=== PATIENT | male | born 1995 | race Caucasian/White ===

== ENCOUNTER 2023-07-03 22:18 | Emergency (ER) | payer OTHER, SELFPAY ==
[2023-07-03 22:20] VITALS: BP 120/84
[2023-07-03 22:45] VITALS: BP 145/85
[2023-07-03 22:49] LABS: Hematocrit 43.4 % (39.0-52.0); Hemoglobin 15.8 g/dL (13.0-18.0); Mean Corp Hgb Conc. 36.4 g/dL (33.0-37.0); Mean Corpuscular Hgb 30.4 pg (27.0-31.0); Mean Corpuscular Volume 83.6 fL (80.0-94.0); Mean Platelet Volume 9.6 fL (7.4-10.4); Platelet Count 261 10^3/uL (130-400); Red Blood Cell Count 5.19 10^6/uL (4.70-6.10); Red Cell Dist. Width 12.1 % (11.5-14.5)
--- NOTE | 2023-07-03 22:55 | ED.GENMED ---
History of Present Illness
<REILLY Zamudio - Last Filed: 07/04/23 02:07>
General
Chief Complaint: Heart Rate Problem
Source: patient
Exam Limitations: none
Time Seen by Provider: 07/03/23 22:47
Travel History
Have you had any contact with someone who has COVID-19?: No
Do you have any symptoms of coronavirus? Fever > 100 degrees, chills, cough, shortness of breath, sore throat, loss of taste or smell, muscle aches, or headache?: No
History of Present Illness
History of Present Illness:
This is a 28 year old male that comes in with c/o increased heart rate. States that for the pat 4-5 hour his heart rate has been between 110 to 130. States that he has no chest pain. States that he has a headache and vomited X 3. States that he was
just working on [employer] stuff. Denies any fever, chills, chest pain, SOB, abd pain, nausea, diarrhea, dizziness, urinary burning.
Past History
<REILLY Zamudio - Last Filed: 07/04/23 02:07>
Past History
ED Past Medical History: GERD
ED Past Surgical History: Other (Myringotomy tubes)
Social History
Tobacco: Non-smoker
Alcohol: Occasional
Personal: Single
Living: with family
Employment: Student
Review of Systems
<REILLY Zamudio - Last Filed: 07/04/23 02:07>
Review of Systems
All Other Systems: ROS reviewed and negative except as documented in HPI and ROS
Constitutional: Reports no symptoms; Denies fever or chills
EENT: Reports no symptoms
Respiratory: Denies cough or trouble breathing
Cardiac: Denies chest pain
ABD/GI: Reports nausea and vomiting; Denies abdominal pain or diarrhea
: Reports no symptoms
Musculoskeletal: Reports no symptoms
Skin: Reports no symptoms
Neurological: Reports headache (across his forehead); Denies dizzy
Psychiatric: Reports no symptoms
Phy Exam
<REILLY Zamudio - Last Filed: 07/04/23 02:07>
General Physical Exam
General Presentation: well appearing and no apparent distress
General age: appears stated age
General Skin: warm and dry
General Habitus: normal
General Mental: alert
ENT Exam
ENT Exam: TM's normal, pharynx normal and neck supple
Eye Exam
Eye Exam: EOMI
Cardiovascular Exam
Cardiovascular Exam: no edema, normal peripheral pulses and tachycardia
Pulmonary Exam
Pulmonary Exam: lungs clear, no respiratory distress, no rales, chest non tender, no crackles, no rhonchi, no wheezing and no cough
Gastrointestinal Exam
Gastrointestinal Exam: normal bowel sounds, non tender, soft, no organomegaly, no pulsatile mass and non distended
Musculoskeletal Exam
Musculoskeletal Exam: full ROM and no edema
Skin Exam
Skin Exam: normal color, warm/dry, no rash and no petechia
Psychiatric Exam
Psychiatric Exam: normal mood/affect
Course
<REILLY Zamudio - Last Filed: 07/04/23 02:07>
Orders/Labs/Results
Orders:
Orders
07/03/23 22:24
Electrocardiogram (*1) Urgent
Reason for Study: Tachycardia
EKG- Treatment ONCE
07/03/23 22:43
Complete Blood Count/No Diff Urgent
Comprehensive Metabolic Panel Urgent
TSH Urgent
07/03/23 22:53
0.9% Sodium Chloride 1000 ml [Nss] 1,000 ml IV BOLUS
Ibuprofen [Motrin] 600 mg PO NOW STA
07/03/23 22:56
Ondansetron Injectable [Zofran] 4 mg IV NOW STA
07/03/23 23:05
COVID-19 Antigen Urgent
Source: Nasal Swab
Complete Blood Count/With Diff Urgent
Influenza A+B Rapid Molecular Urgent
SCOTT Source: Nasal Swab
Specimen Description:
07/03/23 23:35
Urinalysis Reflex To Culture Urgent
Date Specimen was Collected: 07/04/23
Time Specimen was Collected: 00:06
CR Chest - 2 Views Urgent
Comment:
Reason For Exam: fEVER
07/04/23 00:10
0.9% Sodium Chloride 1000 ml [Nss] 1,000 ml IV BOLUS
07/04/23 01:13
Acetaminophen [Tylenol] 1,000 mg PO NOW STA
Abnormal Lab Results
07/03/23 07/03/23
22:43 23:05
WBC 19.0 H 10^3/uL 18.8 H 10^3/uL
(4.8-10.8) (4.8-10.8)
Abs Immat Gran (auto) 0.1 H 10^3/uL
(0-0.05)
Absolute Neuts (auto) 16.5 H 10^3/uL
(1.4-6.5)
Absolute Monos (auto) 0.9 H 10^3/uL
(0.1-0.6)
Neutrophils % 87.6 H %
(42.2-75.2)
Lymphocytes % 6.6 L %
(20.5-51.1)
Glucose 115 H mg/dl
(70-99)
07/03/23 23:05
07/03/23 22:43
LEUKOCYTOSIS, GLUCOSE NONFASTING. TSH 0.83, COVID and Influenza Negative. Urine negative for infection.
Vital Signs
Initial and Last Documented VS:
Initial Vital Signs
Temp Pulse Resp BP Pulse Ox
99 F 146 22 120/84 98
07/03/23 22:20 07/03/23 22:20 07/03/23 22:20 07/03/23 22:20 07/03/23 22:20
Last Documented Vital Signs
Temp Pulse Resp BP Pulse Ox
102.3 F H 119 22 119/64 100
07/04/23 01:59 07/04/23 01:02 07/04/23 01:02 07/04/23 01:02 07/04/23 01:02
<Paul Rossi, DO - Last Filed: 07/04/23 01:40>
Orders/Labs/Results
Orders:
Orders
07/03/23 22:24
Electrocardiogram (*1) Urgent
Reason for Study: Tachycardia
EKG- Treatment ONCE
07/03/23 22:43
Complete Blood Count/No Diff Urgent
Comprehensive Metabolic Panel Urgent
TSH Urgent
07/03/23 22:53
0.9% Sodium Chloride 1000 ml [Nss] 1,000 ml IV BOLUS
Ibuprofen [Motrin] 600 mg PO NOW STA
07/03/23 22:56
Ondansetron Injectable [Zofran] 4 mg IV NOW STA
07/03/23 23:05
COVID-19 Antigen Urgent
Source: Nasal Swab
Complete Blood Count/With Diff Urgent
Influenza A+B Rapid Molecular Urgent
SCOTT Source: Nasal Swab
Specimen Description:
07/03/23 23:35
Urinalysis Reflex To Culture Urgent
Date Specimen was Collected: 07/04/23
Time Specimen was Collected: 00:06
CR Chest - 2 Views Urgent
Comment:
Reason For Exam: fEVER
07/04/23 00:10
0.9% Sodium Chloride 1000 ml [Nss] 1,000 ml IV BOLUS
07/04/23 01:13
Acetaminophen [Tylenol] 1,000 mg PO NOW STA
Abnormal Lab Results
07/03/23 07/03/23
22:43 23:05
WBC 19.0 H 10^3/uL 18.8 H 10^3/uL
(4.8-10.8) (4.8-10.8)
Abs Immat Gran (auto) 0.1 H 10^3/uL
(0-0.05)
Absolute Neuts (auto) 16.5 H 10^3/uL
(1.4-6.5)
Absolute Monos (auto) 0.9 H 10^3/uL
(0.1-0.6)
Neutrophils % 87.6 H %
(42.2-75.2)
Lymphocytes % 6.6 L %
(20.5-51.1)
Glucose 115 H mg/dl
(70-99)
07/03/23 23:05
07/03/23 22:43
Vital Signs
Initial and Last Documented VS:
Initial Vital Signs
Temp Pulse Resp BP Pulse Ox
99 F 146 22 120/84 98
07/03/23 22:20 07/03/23 22:20 07/03/23 22:20 07/03/23 22:20 07/03/23 22:20
Last Documented Vital Signs
Temp Pulse Resp BP Pulse Ox
102.3 F H 119 22 119/64 100
07/04/23 01:59 07/04/23 01:02 07/04/23 01:02 07/04/23 01:02 07/04/23 01:02
<REILLY Zamudio - Last Filed: 07/04/23 02:07>
MDM/Problems Addressed
Differential Diagnosis Includes:
Fever, COVID, Influenza
MDM/Problems Addressed:
This is a 28 year old male that comes in with c/o increased heart rate for the past 4-5 hours. 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
Will check labs, Medicate for fever as found to have a fever of 101.9 and give IV fluids. Will test for COVID and Influenza.
Back into see patient. Patient continues with a fever of 102.3. Patient has had Tylenol and Ibuprofen for his fever. Patient was seen by Dr. Rossi. Patient states that he feels fine. Explained that this is most likely a viral illness. Patient to
increase his water intake to 8-8oz glasses daily. Patient to continue with Tylenol and Ibuprofen for fever. Return with any concerns.
Chronic conditions affecting care:
NA
Acute Exacerbation and/or Progression of Chronic Illness:
NA
<REILLY Zamudio - Last Filed: 07/04/23 02:07>
*Radiology
Radiology exam reviewed: radiology read reviewed (Chest- negative for active disease. )
*Pulse Oximetry
Patient hypoxic: no
*EKG
Interpreted by ED Provider?: Yes
Heart Rate: 129
Rate: tachycardiac
Rhythm: sinus
[place]: normal axis
Interval: normal interval
QRS Pattern: normal QRS
Ischemia: no ischemia (Checked by Dr. Rossi)
*[employer] Interpretation
Rate: tachycardiac
Heart Rate: 130
Rhythm: sinus tachycardia
*Critical Care Note
Total Time (30-74mins, 75-104mins- exclusive of procedures): Not Applicable
ED Attending Note
<REILLY Zamudio - Last Filed: 07/04/23 02:07>
-
Portions of this chart may have been created with voice recognition software.� Occasional wrong word or��sound alike� substitutions may have occurred due to the inherent limitations of voice recognition software.
<Paul Rossi DO - Last Filed: 07/04/23 01:40>
ED Attending Note
Patient seen and examined by attending physician: Yes
I performed the substantive portion of visit, reviewed & personally made and approve the management plan that is documented in note by myself or RAYMOND.: Yes
ED Attending Note:
28-year-old male who presents for evaluation of fast heart rate. He states his heart rate monitor on his watch mention that his heart rate was fast. Patient states he did have vomiting earlier. He had a little bit of a headache and antibody of
like 99. He states he has been under a lot of stress due to planning a wedding. Patient denies congestion. No abdominal pain. No dysuria. No rash. No neck pain. No neck stiffness. Exam: Temperature 101.5 on my exam. Is a bit tachycardic.
Abdomen soft and nontender, no CVA tenderness. Assessment and plan: Do not suspect meningitis. Is not an IV drug abuser. No significant risks and question whether this could be viral. Perhaps in light of the vomiting he could have norovirus.
Continue IV fluids and antipyretics
Discharge Plan
Departure
Patient Disposition: Home (Routine Discharge)
Date of Disposition: 07/04/23
Time of Disposition: 02:03
Patient with high blood pressure during this ER visit?: No
Condition: Good
Covid-19: Negative COVID-19
Discharge Problem:
Acute viral syndrome, Fever
Instructions: Fever, Adult (DC), Viral Syndrome (DC)
Referrals:
UNKNOWN - PT DOES,NOT KNOW [Family Provider] -
Activity Restrictions/Additional Instructions:
As discussed, your blood work shows that your WBC are elevated. You are negative for COVID and Influenza. Your chest x-ray is normal and your urine is negative for infection. This is most likely a viral syndrome. Please increase your water intake to
8-8oz glasses daily. Continue with Tylenol 1000mg every 6 hours for the fever and Ibuprofen 600mg every 6 hours with food. Follow up with the family doctor for recheck. IF YOU HAVEV ANY OTHER CONCERNS PLEASE RETURN TO THE EMERGENCY ROOM.
Interventions
Interventions:
*Risk Screen - Suicide Last Done: 07/03/23 22:20
*Neglect/Abuse Screening Last Done: 07/03/23 22:20
ED- Cardiac Assessment Last Done: 07/03/23 22:46
ED- Pulmonary Assessment Last Done: 07/03/23 22:46
[2023-07-03] MEDS: NSS 1000 IV (23:03)
[2023-07-03 23:04] LABS: ALT (SGPT) 31 U/L (0-50); AST (SGOT) 31 U/L (17-59); Albumin 4.9 g/dl (3.5-5.0); Alkaline Phosphatase 76 U/L (38-126); Blood Urea Nitrogen 13 mg/dl (9-20); Calcium 9.8 mg/dl (8.4-10.2); Carbon Dioxide 22 mmol/L (22-30); Chloride 105 mmol/L (98-107); Glucose 115 mg/dl (70-99); Potassium 3.6 mmol/L (3.5-5.1); Sodium 136 mmol/L (135-145); Total Bilirubin 0.8 mg/dl (0.2-1.3); Total Protein 7.5 g/dl (6.3-8.2); eGFR > 60.00
[2023-07-03] MEDS: ZOFRAN 4 MG IV (23:04)
[2023-07-03] MEDS: MOTRIN 600 MG PO (23:04)
[2023-07-03 23:13] LABS: % Basophils 0.3 % (0-2); % Eosinophils 0.3 % (0-6); % Immature Granulocytes 0.4 % (0-0.5); % Lymphocytes 6.6 % (20.5-51.1); % Monocytes 4.8 % (1.7-9.3); % Neutrophils 87.6 % (42.2-75.2); Absolute Basophils 0.1 10^3/uL (0-0.2); Absolute Eosinophils 0.1 10^3/uL (0-0.7); Absolute Immature Granulocytes 0.1 10^3/uL (0-0.05); Absolute Lymphocytes 1.2 10^3/uL (1.2-3.4); Absolute Monocytes 0.9 10^3/uL (0.1-0.6); Absolute Neutrophils 16.5 10^3/uL (1.4-6.5); Hemoglobin 15.5 g/dL (13.0-18.0); Mean Corpuscular Hgb 30.7 pg (27.0-31.0); Mean Corpuscular Volume 85.1 fL (80.0-94.0); Mean Platelet Volume 9.7 fL (7.4-10.4); Nucleated Red Blood Cells % 0 % (-); Platelet Count 237 10^3/uL (130-400); Red Blood Cell Count 5.05 10^6/uL (4.70-6.10); Red Cell Dist. Width 12.2 % (11.5-14.5); White Blood Cell Count 18.8 10^3/uL (4.8-10.8)
[2023-07-03 23:29] VITALS: BP 160/86
[2023-07-03 23:29] LABS: COVID-19 Antigen Negative (Negative)
[2023-07-03 23:34] LABS: TSH 0.83 uIU/ml (0.47-4.68)
[2023-07-04 00:01] VITALS: BP 116/99
[2023-07-04] MEDS: NSS 1000 IV (00:10)
[2023-07-04 00:20] LABS: Urine Albumin Negative (Neg - Trace); Urine Bilirubin Negative (Negative); Urine Character Clear (Clear); Urine Color Yellow; Urine Glucose Negative (Negative); Urine Ketone Negative (Negative); Urine Leukocyte Negative (Negative); Urine Nitrite Negative (Negative); Urine Occult Blood Negative (Negative); Urine Specific Gravity 1.015 (<1.030); Urine Urobilinogen Negative (Neg - 1+)
[2023-07-04 01:02] VITALS: BP 119/64
[2023-07-04 01:17] VITALS: BMI 32.9
[2023-07-04] MEDS: TYLENOL 1000 MG PO (01:17)
[2023-07-04 02:05] VITALS: BP 126/72
== END 2023-07-04 02:13 | disposition home or self-care (01) ==
LOC: EMR 22:18
PROVIDERS: Clinical Nurse Specialist Family Health; Emergency Medicine; EMERGENCY PHYSICIAN Emergency Medicine
DX: B34.9 Viral infection, unspecified (principal); R50.9 Fever, unspecified; R00.0 Tachycardia, unspecified; R51.9 Headache, unspecified; R11.2 Nausea with vomiting, unspecified; Z11.52 Encounter for screening for COVID-19; K21.9 Gastro-esophageal reflux disease without esophagitis
CPT/HCPCS: 99284; 96374; 71046; 80053; 81003; 84443; 85025; 85027; 87502; 87811; 93005